=== PATIENT | female | born 1995 | race Caucasian/White ===

== ENCOUNTER → 2017-09-19 | Outpatient (CLI) | payer OTHER ==
--- NOTE | 2017-09-20 10:39 | EEG PRO FEE REPORT ---
EEG INTERPRETATION PATIENT NAME: ALEJANDRA BISHOP ROOM#: ORDER#: [id number] DATE OF STUDY: 09/19/2017 : 1995 REFERRING MD: ART NEAL M.D. MEDICATIONS: vitamins, Folic acid History This is a 22 year old right handed woman with a history of migraines and possible epilepsy or syncope since 2011. She is nine weeks . EEG Interpretation This EEG was recorded in the awake state only. The awake EEG is characterized by a well organized background with a well developed and reactive posterior dominant rhythm of 11 Hz. Photic stimulation resulted in a good driving response. During hyperventilation, there was one brief generalized left>right, central>temporal spike wave complex lasting approximately 0.5 seconds in duration. There was no clinical correlation noted. EEG Classification 1. Brief spike waves complex (generalized, left>right, central>temporal) EEG Impression This EEG in the awake state only is abnormal. It is characterized by one brief spike wave complex during hyperventilation. This had a left>right predominance but appeared most consistent with a generalized pattern. This may be inherited as genetic trait. Clinical correlation is required. A further EEG to obtain sleep may be of interest. INTERPRETING PHYSICIAN: ALEX ACUÑA M.D. /: [id number] TT: 1022 ID: [id number] /: [id number] TD: [id number] JOB: [id number] cc:Kehinde COLEMAN M.D. > MTDD
== END ==
LOC: NEURO 08:23
PROVIDERS: ATTEND Pediatrics
DX: R55 Syncope and collapse (principal)
CPT/HCPCS: 95819